=== PATIENT | female | born 1995 | race American Indian/Alaskan Native ===

== ENCOUNTER 2017-10-04 08:04 | Emergency (ER) | payer MEDICAID ==
[2017-10-04 09:48] LABS: Basophils % (Auto) 0.6 % (0.0-1.8); Eosinophils # (Auto) 0.1 K/mm3 (0.0-0.4); Eosinophils % (Auto) 1.9 % (0.0-4.3); Hematocrit 41.5 % (30.3-42.9); Lymphocytes # (Auto) 1.7 K/mm3 (1.2-5.4); Lymphocytes % (Auto) 33.2 % (13.4-35.0); Mean Corpuscular HGB Conc 34 % (30-34); Mean Corpuscular Hemoglobin 30 pg (28-32); Mean Corpuscular Volume 90 fl (79-97); Monocytes # (Auto) 0.4 K/mm3 (0.0-0.8); Monocytes % (Auto) 7.6 % (0.0-7.3); Platelet Count 280 K/mm3 (140-440); Red Cell Distribution Width 13.5 % (13.2-15.2)
[2017-10-04 10:09] LABS: Alanine Aminotransferase 23 units/L (7-56); Albumin 4.3 g/dL (3.9-5); BUN/Creatinine Ratio 20; Blood Urea Nitrogen 12 mg/dL (7-17); Calcium 8.6 mg/dL (8.4-10.2); Hemolysis Index 76
[2017-10-04 10:20] LABS: Bacteria,Urine 1+ /HPF (Negative); Bilirubin,Urine NEG (Negative); Blood,Urine NEG (Negative); Color,Urine Yellow (Yellow); Mucus,Urine FEW /HPF; Protein,Urine <15 mg/dL mg/dL (Negative); Urobilinogen,Urine < 2.0 mg/dL (<2.0)
[2017-10-04 10:21] LABS: HCG Qualitative,Urine Positive (Negative)
--- NOTE | 2017-10-04 11:08 | Emergency Department Report ---
ED Abdominal Pain HPI - General Chief Complaint: Abdominal Pain Stated Complaint: ABD PAIN Time Seen by Provider: 10/04/17 10:56 Source: patient Mode of arrival: Ambulatory Limitations: No Limitations - History of Present Illness Initial Comments: Patient is 21 years old female 2 para 1. Presented to the ER complaining of left lower quadrant pain for one week associated with dysuria. Patient stated that her last menstrual period last month. Patient denied any vaginal bleeding or vaginal discharge. She denied chest pain, shortness of breath or cough or fever. MD Complaint: abdominal pain -: week(s) Location: LLQ Radiation: none Migration to: no migration Severity: moderate Consistency: constant Associated Symptoms: dysuria - Related Data Home Medications Medication Instructions Recorded Confirmed Last Taken Pnv,Calcium 72/Iron/Folic Acid 1 tab PO DAILY 07/01/13 07/27/13 07/26/13 08:00 [Pnv Plus Multivit Tab] Previous Rx's Medication Instructions Recorded Last Taken Type Ferrous Sulfate [Feosol 325 MG tab] 325 mg PO BID #60 tablet 07/29/13 Unknown Rx Ibuprofen [Motrin 600 MG tab] 600 mg PO Q6H PRN #30 tablet 07/29/13 Unknown Rx Vit-Fe Fumar-FA [ 1 each PO QDAY #30 tablet 07/29/13 Unknown Rx Vitamin] Phenazopyridine [Pyridium] 200 mg PO TID #6 tablet 02/23/14 Unknown Rx Acetaminophen/Codeine 1 tab PO Q6H PRN #14 tab 03/20/14 Unknown Rx [Acetaminophen-Codeine #3 TAB] Nitrofurantoin [place]/M-Cryst 100 mg PO Q12HR #10 capsule 09/01/14 Unknown Rx [Macrobid] metroNIDAZOLE [Flagyl] 500 mg PO ONCE #4 tablet 09/01/14 Unknown Rx Nitrofurantoin [place]/M-Cryst 100 mg PO Q12HR #14 capsule 10/04/17 Unknown Rx [Macrobid CAP] Allergies Allergy/AdvReac Type Severity Reaction Status Date / Time No Known Allergies Allergy Verified 07/23/13 10:49 ED Review of Systems ROS: Stated complaint: ABD PAIN Other details as noted in HPI Comment: All other systems reviewed and negative Constitutional: denies: chills, fever Eyes: denies: eye pain Respiratory: denies: cough, orthopnea, shortness of breath, SOB with exertion, SOB at rest, wheezing Cardiovascular: denies: chest pain, palpitations, dyspnea on exertion, orthopnea , edema, syncope, paroxysmal nocturnal dyspnea Gastrointestinal: abdominal pain. denies: nausea, vomiting, diarrhea, constipation, hematemesis, melena Genitourinary: dysuria Musculoskeletal: denies: back pain Neurological: denies: headache, weakness, numbness, paresthesias ED Past Medical Hx - Past Medical History Previous Medical History?: No Hx Hypertension: No Hx Congestive Heart Failure: No Hx Diabetes: No Hx Deep Vein Thrombosis: No Hx Renal Disease: No Hx Sickle Cell Disease: No Hx Seizures: No Hx Asthma: No Hx COPD: No Hx HIV: No - Surgical History Past Surgical History?: No - Social History Smoking Status: Current Every Day Smoker Substance Use Type: None - Medications Home Medications: Home Medications Medication Instructions Recorded Confirmed Last Taken Type Pnv,Calcium 72/Iron/Folic Acid 1 tab PO DAILY 07/01/13 07/27/13 07/26/13 08:00 History [Pnv Plus Multivit Tab] Ferrous Sulfate [Feosol 325 MG tab] 325 mg PO BID #60 tablet 07/29/13 Unknown Rx Ibuprofen [Motrin 600 MG tab] 600 mg PO Q6H PRN #30 tablet 07/29/13 Unknown Rx Vit-Fe Fumar-FA [ 1 each PO QDAY #30 tablet 07/29/13 Unknown Rx Vitamin] Phenazopyridine [Pyridium] 200 mg PO TID #6 tablet 02/23/14 Unknown Rx Acetaminophen/Codeine 1 tab PO Q6H PRN #14 tab 03/20/14 Unknown Rx [Acetaminophen-Codeine #3 TAB] Nitrofurantoin [place]/M-Cryst 100 mg PO Q12HR #10 capsule 09/01/14 Unknown Rx [Macrobid] metroNIDAZOLE [Flagyl] 500 mg PO ONCE #4 tablet 09/01/14 Unknown Rx Nitrofurantoin [place]/M-Cryst 100 mg PO Q12HR #14 capsule 10/04/17 Unknown Rx [Macrobid CAP] ED Physical Exam - General Limitations: No Limitations General appearance: alert, in no apparent distress - Head Head exam: Present: atraumatic, normocephalic, normal inspection - Eye Eye exam: Present: normal appearance - ENT ENT exam: Present: normal exam, normal orophraynx, mucous membranes moist - Neck Neck exam: Present: normal inspection, full ROM. Absent: tenderness, meningismus, lymphadenopathy, thyromegaly - Respiratory Respiratory exam: Present: normal lung sounds bilaterally. Absent: respiratory distress, wheezes, rales, rhonchi, stridor, chest wall tenderness, accessory muscle use, decreased breath sounds, prolonged expiratory - Cardiovascular Cardiovascular Exam: Present: regular rate, normal rhythm, normal heart sounds - GI/Abdominal GI/Abdominal exam: Present: soft, normal bowel sounds. Absent: distended, tenderness, guarding, rebound, rigid, organomegaly, mass, bruit, pulsatile mass , hernia - Extremities Exam Extremities exam: Present: normal inspection, full ROM, normal capillary refill - Back Exam Back exam: Present: normal inspection, full ROM. Absent: tenderness, CVA tenderness (R), CVA tenderness (L), muscle spasm, paraspinal tenderness, vertebral tenderness - Neurological Exam Neurological exam: Present: alert, oriented X3, CN II-XII intact, normal gait, reflexes normal - Skin Skin exam: Present: warm, intact, normal color ED Course Vital Signs 10/04/17 10/04/17 10/04/17 09:06 10:57 14:43 Temperature 99.0 F 99.2 F Pulse Rate 94 H 66 Respiratory 16 18 16 Rate Blood Pressure 112/70 Blood Pressure 114/68 [Left] O2 Sat by Pulse 100 100 100 Oximetry ED Medical Decision Making - Lab Data Result diagrams: 10/04/17 09:21 10/04/17 09:24 - Radiology Data Radiology results: report reviewed Referring Physician: JUDY SALVADOR Patient Name: CINTHIA SALMERON Date of : 1995 Sex: Female Report Date: 2017-10-04 Report Status: Finalized Findings [facility] [address] [place] [address] Ultrasound Report Signed Patient: CINTHIA SALMERON MR#: [id number] : 1995 Acct:[id number] Age/Sex: 21 / F ADM Date: 10/04/17 Loc: ED Attending Dr: Ordering Physician: JUDY SALVADOR Date of Service: 10/04/17 Procedure(s): US OB transvaginal Accession Number(s): [id number] cc: JUDY SALVADOR Ultrasound OB less than 14 weeks fetus Ultrasound OB transvaginal HISTORY: Pelvic pain, cramping. COMPARISON: None. TECHNIQUE: Transabdominal and transvaginal ultrasound with color doppler interrogation. FINDINGS: Uterus: The uterus measures 9 x 6 x 6 cm. No uterine fibroid disease is identified. Normal cervix. Endometrium: An intrauterine gestational sac containing a yolk sac is identified. No convincing pole or heart tones are identified on ultrasound. Gestational sac diameter correlates with a 6 week, one day . A small subchorionic hemorrhage is identified. Right ovary: Within normal limits. Left ovary: A 2.3 cm left ovarian cyst is identified. No pelvic fluid or mass is identified. Normal color doppler interrogation. IMPRESSION: An intrauterine gestational sac containing a small yolk sac is identified. No pole or cardiac activity is identified at this time. This could represent a very early normal or blighted ovum. Close interval followup is recommended. Small subchorionic hemorrhage. 2.3 cm left ovarian cyst. Transcribed By: TTR Dictated By: DANIEL STORM JR, MD Electronically Authenticated By: DANIEL STORM JR, MD Signed Date/Time: 10/04/17 1405 DD/ 1359 TD/TT: 10/04/17 1405 - Medical Decision Making Ultrasound reviewed, I advised patient to follow up with her OB in the next 2-3 days. Patient understood and she said that she will follow up with her OB doctor. Critical care attestation.: If time is entered above; I have spent that time in minutes in the direct care of this critically ill patient, excluding procedure time. ED Disposition Clinical Impression: Abdominal pain affecting , UTI (urinary tract infection) Disposition: DC-01 TO HOME OR SELFCARE Is pt being admited?: No Condition: Stable Instructions: (ED), Urinary Tract Infection in Women (ED), Abdominal Pain (ED) Prescriptions: Nitrofurantoin [place]/M-Cryst [Macrobid CAP] 100 mg PO Q12HR #14 capsule Referrals: RAJINDER LAZO MD [Staff Physician] - 3-5 Days
--- NOTE | 2017-10-04 14:15 | Ultrasound Report ---
Ultrasound OB less than 14 weeks fetus Ultrasound OB transvaginal HISTORY: Pelvic pain, cramping. COMPARISON: None. TECHNIQUE: Transabdominal and transvaginal ultrasound with color doppler interrogation. FINDINGS: Uterus: The uterus measures 9 x 6 x 6 cm. No uterine fibroid disease is identified. Normal cervix. Endometrium: An intrauterine gestational sac containing a yolk sac is identified. No convincing pole or heart tones are identified on ultrasound. Gestational sac diameter correlates with a 6 week, one day . A small subchorionic hemorrhage is identified. Right ovary: Within normal limits. Left ovary: A 2.3 cm left ovarian cyst is identified. No pelvic fluid or mass is identified. Normal color doppler interrogation. IMPRESSION: An intrauterine gestational sac containing a small yolk sac is identified. No pole or cardiac activity is identified at this time. This could represent a very early normal or blighted ovum. Close interval followup is recommended. Small subchorionic hemorrhage. 2.3 cm left ovarian cyst.
[2017-10-04 14:44] VITALS: BP 114/68
== END 2017-10-04 14:49 | disposition home or self-care (01) ==
LOC: ED 08:04
DX: O23.41 Unspecified infection of urinary tract in pregnancy, first trimester (principal); Z3A.14 14 weeks gestation of pregnancy; O99.331 Smoking (tobacco) complicating pregnancy, first trimester
CPT/HCPCS: 36415; 76801; 76817; 80053; 81001; 81025; 84702; 85025; 86900; 86901; 99284

== ENCOUNTER 2018-05-27 11:30 | Inpatient (IN) | payer MEDICAID ==
--- NOTE | 2018-05-27 13:17 | History and Physical Report ---
History of Present Illness Date of examination: 05/27/18 Date of admission: 05/27/2018 Chief complaint: Contractions History of present illness: Past History : 2 Term Births: 1 Premature Births: 0 Living Children: 1 Para: 1 Mult. Births: 0 Prev : 0 Prev. attempt? 0 Aborta: 0 Elect. Ab: 0 Spont. Ab: 0 Ectopics: 0 # 1 Delivery date: 2014 Weeks Gestation: term labor: no Delivery type: Delivery location: [facility] Infant Sex: Male Past Medical History: Negative Past Medical History Past Surgical History: negative Past Medical History Anesthesia Complications: negative Anemia: negative Autoimmune Disorder: negative Bleeding Disorder: negative Blood Transfusions: negative Breast Disease: negative Diabetes: negative Heart Disease: negative Hypertension: negative Hepatitis/Liver Disease: negative Kidney Disease/UTI: negative Neurologic/Epilepsy/Migraines: negative Phlebitis/Varicosities: negative Psychiatric: negative Pulmonary Disease/Asthma: negative Thyroid Disease: negative Hospitalizations: negative 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 Abnormal PAP: negative GARTH Exposure: negative Infertility: negative Uterine Anomaly: negative Uterine Surgery (not C/S): negative Other Gynecologic Problems: negative Family Hx: no known family hx Social Hx: unemployed no ETOH/Drugs/Smoking Infection History Hx of STD: none HIV Risk Eval: no Hepatitis B Risk Eval: low risk Varicella/Chicken Pox Status: Previous Disease Genetic History Congenital Heart Defect: Mom: no Dad: no Kaycee Disease: Mom: no Dad: no Thalassemia Mom: no Dad: no Neural Tube Defect Mom: no Dad: no Down's Syndrome Mom: no Dad: no Alex-Sachs Mom: no Dad: no Sickle Cell Disease/Trait Mom: no Dad: no Hemophilia Mom: no Dad: no Muscular Dystrophy Mom: no Dad: no Cystic Fibrosis Mom: no Dad: no [place] Chorea Mom: no Dad: no Mental Retardation Mom: no Dad: no Fragile X Mom: no Dad: no Other Genetic/Chromosomal Disorder Mom: no Dad: no Child w/other defect Mom: no Dad: no Enviromental Exposures Xray Exposure: no Medication, drug, or alcohol use since LMP: no Chemical/Other Exposure: no Exposure to Cat Liter: no Hx of Parvovirus (Fifth Disease): no Occupational Exposure to Children: none Active Medications (reviewed today): None Current Allergies (reviewed today): No known allergies Past History Past Medical History: other (see hpi) Past Surgical History: other (see hpi) PICU NURSE History: other (see hpi) Family/Genetic History: other (see hpi) Social history: other (see hpi) - Obstetrical History : 2 Medications and Allergies Allergies Allergy/AdvReac Type Severity Reaction Status Date / Time No Known Allergies Allergy Verified 07/23/13 10:49 Home Medications Medication Instructions Recorded Confirmed Last Taken Type Vit-Fe Fumar-FA [ 1 each PO QDAY #30 tablet 07/29/13 05/27/18 05/26/18 Rx Vitamin] Review of Systems All systems: negative - Vital Signs Vital signs: Vital Signs Pulse BP 116 H 126/71 05/27/18 11:45 05/27/18 11:45 Temp Pulse Resp BP Pulse Ox 98.2 F 116 H 16 126/71 05/27/18 12:05 05/27/18 11:45 05/27/18 12:05 05/27/18 11:45 - Physical Exam Breasts: Positive: normal Cardiovascular: Regular rate, Normal S1, Normal S2 Lungs: Positive: Clear to auscultation Abdomen: Positive: normal appearance, soft, normal bowel sounds. Negative: distention, tenderness Genitourinary (Female): Positive: normal external genitalia, normal perenium Vulva: both: normal Vagina: Positive: normal moisture. Negative: discharge Cervix: Negative: lesion, discharge Uterus: Positive: normal size, normal contour Adnexa: both: normal Anus/Rectum: Positive: normal perianal skin, heme negative. Negative: rectal mass, hemorrhoids Extremities: Positive: normal Deep Tendon Reflex Grade: Normal +2 - Obstetrical FHR: auscultation normal Uterine Contraction Monitor Mode: External Cervical Dilatation: 6 Cervical Effacement Percentage: 80 station: -2 Uterine Contraction Frequency (min): 2-5 Uterine Contraction Duration: 70-90 Uterine Contraction Pattern: Regular Uterine Tone Measurement Phase: Contraction Uterine Contraction Intensity: Moderate (soft resting tone) Results All other labs normal. Assessment and Plan 22y.o. IUP at 38w5d presents to triage with c/o contractions every 2-4 minutes. SVE on arrival 4.5/80/-2. Recheck 45 minutes later 6/80/-2. Ctx q2-5 minutes, moderate. Cateogry 1 tracing. GBS +. Routine admission orders placed, abx for GBS initiated. Patient desires epidural, bolus started in preparation. Dr. Prince notified of patient assessment and admission, agrees with current POC. Anticipate vaginal delivery.
[2018-05-27] MEDS ORDERED: BRETHINE SUB-Q PRN (13:20)
[2018-05-27] MEDS ORDERED: XYLOCAINE 2% INFILTRATI ONE (13:20)
[2018-05-27] MEDS ORDERED: ZOFRAN IV PRN ×2 (13:20→22:27)
[2018-05-27] MEDS ORDERED: NARCAN 0.4 MG/1 ML IV PRN (13:20)
[2018-05-27] MEDS ORDERED: BRETHINE IVP PRN (13:20)
[2018-05-27] MEDS ORDERED: MINERAL OIL PO PRN (13:20)
[2018-05-27] MEDS ORDERED: METHERGINE IM PRN (13:27)
[2018-05-27] MEDS ORDERED: HEMABATE IM PRN (13:27)
[2018-05-27] MEDS ORDERED: CYTOTEC PR PRN (13:27)
[2018-05-27 13:54] LABS: Hematocrit 32.3 % (30.3-42.9); Hemoglobin 10.8 gm/dl (10.1-14.3); Mean Corpuscular HGB Conc 33 % (30-34); Mean Corpuscular Volume 89 fl (79-97); Platelet Count 276 K/mm3 (140-440); Red Blood Count 3.65 M/mm3 (3.65-5.03); Red Cell Distribution Width 13.5 % (13.2-15.2)
[2018-05-27] MEDS ORDERED: AMPICILLIN/NS 2 GM/100 ML 2 GM/100 ML BAG IV ONE (13:59)
[2018-05-27] MEDS ORDERED: LACTATED RINGERS 1,000 ML IV SCH (14:00)
[2018-05-27] MEDS ORDERED: PITOCin/NS 20 UNIT/1000ML DRIP 20 UNITS/1,000 ML BAG IV SCH ×2 (14:00→22:27)
[2018-05-27] MEDS ORDERED: SUBLIMAZE IV PRN (14:03)
[2018-05-27] MEDS ORDERED: NARCAN 2 MG/2 ML IV PRN (15:52)
--- NOTE | 2018-05-27 15:52 | Anesthesia Consultation ---
Anesthesia Consult and Med Hx Date of service: 05/27/18 - Airway Anesthetic Teeth Evaluation: Good ROM Head & Neck: Adequate Mental/Hyoid Distance: Adequate Mallampati Class: Class II Intubation Access Assessment: Probably Good - Pre-Operative Health Status ASA Pre-Surgery Classification: ASA2 Proposed Anesthetic Plan: Epidural, Spinal - Pulmonary Hx Asthma: No COPD: No Hx Pneumonia: No - Cardiovascular System Hx Hypertension: No - Central Nervous System Hx Seizures: No Hx Psychiatric Problems: No - Endocrine Hx Renal Disease: No Hx End Stage Renal Disease: No Hx Hypothyroidism: No Hx Hyperthyroidism: No - Hematic Hx Anemia: No Hx Sickle Cell Disease: No - Other Systems Hx Alcohol Use: Yes (x1)
[2018-05-27] MEDS ORDERED: fentaNYL-BUPIV 2 MCG/ML-0.125% 200 MCG/100 ML BAG EPIDURAL SCH (16:00)
--- NOTE | 2018-05-27 16:15 | Event Note ---
Date: 05/27/18 Patient resting comfortably s/p epidural placement. Denies any complaints. AROM performed, light meconium noted. SVE 6.5/80/-1. Will continue to monitor. Anticipate vaginal delivery.
[2018-05-27] MEDS ORDERED: PITOCin/NS 30 UNIT/500ML 30 UNITS/500 ML BAG IV SCH (17:00)
[2018-05-27] MEDS ORDERED: AMPICILLIN/NS 1 GM/50 ML 1 GM/50 ML BAG IV SCH (17:24)
--- NOTE | 2018-05-27 17:33 | Event Note ---
Date: 05/27/18 Late decerations noted- O2, LR bolus, left lateral. SVE unchanged, Dr. Prince notified-internals placed per order from .
--- NOTE | 2018-05-27 19:53 | Procedure Note ---
OB Delivery Note - Delivery Date of Delivery: 05/27/18 Field Service Coordinator: CHRISTINA FLORES (Dr. Prince present for delivery) Estimated blood loss: 200cc - Vaginal Delivery position: OA Intrapartum events: meconium Delivery induction: none Delivery augmentation: rupture of membranes, pitocin Delivery monitor: external FHT, external uterine, internal FHT, internal uterine Route of delivery: Delivery placenta: spontaneous Episiotomy: none Delivery laceration: none Anesthesia: epidural Delivery comments: of viable female infant over intact perineum. placed on mothers abdomen and tactile stimulation produces vigorous cry. Cord clamped x2 and cut by patients mother. Cord blood collected. Placenta delivered spontaneously, complete and intact. Pitocin to IV. Fundus firm and hemostasis achieved. No laceration to repair. Awaiting NICU team assigned Apgars of 8/9. Infant weight 7#12. Mother and infant remain in LDR in stable condition. - A at 1 minute: 8 at 5 minutes: 9 Infant Gender: Female (7#12)
[2018-05-27] MEDS ORDERED: PHENERGAN PO PRN (22:27)
[2018-05-27] MEDS ORDERED: TYLENOL PO PRN (22:27)
[2018-05-27] MEDS ORDERED: BENADRYL PO PRN (22:27)
[2018-05-27] MEDS ORDERED: SODIUM CHLORIDE FLUSH SYRINGE 10 ML IV NR (22:27)
[2018-05-27] MEDS ORDERED: LANSINOH TP PRN (22:27)
[2018-05-27] MEDS ORDERED: MILK OF MAGNESIA PO PRN (22:27)
[2018-05-27] MEDS ORDERED: DULCOLAX PR PRN (22:27)
[2018-05-27] MEDS ORDERED: TUCKS PAD TP PRN (22:27)
[2018-05-27] MEDS: COLACE PO SCH (22:54)
[2018-05-27] MEDS: IBUPROFEN PO SCH (22:54)
[2018-05-28] MEDS: IBUPROFEN PO SCH ×4 (05:55→22:30)
--- NOTE | 2018-05-28 06:17 | Progress Note ---
Assessment and Plan - Patient Problems (1) Status post normal vaginal delivery Onset Date: ~05/27/18 Current Visit: No Status: Acute Plan to address problem: pt sleeping No c/o voiced VSS FF below umb Lochia small Perineum intact H&H pending Pt is w/o s/sx of anemia Doing well s/p vag delivery P: continue pathway Advance as tolerated. D/C tomorrow if stable. Subjective - Subjective Date of service: 05/28/18 (sleeping; d/c tomorrow) Principal diagnosis: Day # 1 s/p vaginal delivery Patient reports: appetite normal, voiding normally, pain well controlled, ambulating normally : doing well Objective - Vital Signs Latest vital signs: Vital Signs Temp Pulse Resp BP BP Pulse Ox 05/28/18 05:31 98.1 F 89 18 98/51 100 05/28/18 00:40 98.3 F 98 H 18 100/55 100 05/27/18 21:25 99.0 F 84 111/73 100 05/27/18 20:21 155 H 184/70 05/27/18 20:06 94 H 110/66 05/27/18 19:53 85 108/55 05/27/18 19:52 85 182/66 05/27/18 19:48 61 81 L 05/27/18 19:47 78 L 05/27/18 19:38 98 H 100 05/27/18 19:36 100 H 124/58 05/27/18 19:35 97.1 F L 05/27/18 19:33 99 H 100 05/27/18 19:06 89 106/66 100 05/27/18 19:02 97.7 F 05/27/18 19:01 89 100 05/27/18 18:56 88 100 05/27/18 18:51 88 108/65 100 05/27/18 18:46 86 100 05/27/18 18:41 86 100 05/27/18 18:37 84 108/53 05/27/18 18:36 81 100 05/27/18 18:31 75 96 05/27/18 18:26 73 100 05/27/18 18:23 81 102/59 05/27/18 18:22 94 H 88 05/27/18 18:21 88 94 05/27/18 18:16 88 87 05/27/18 18:11 75 99 05/27/18 18:06 78 115/65 94 05/27/18 18:03 85 87 05/27/18 18:01 79 100 05/27/18 17:56 79 100 05/27/18 17:55 98.3 F 18 05/27/18 17:51 80 110/60 100 05/27/18 17:46 84 100 05/27/18 17:45 43 L 80 L 05/27/18 17:41 73 100 05/27/18 17:36 78 104/55 100 05/27/18 17:31 84 100 05/27/18 17:26 72 100 05/27/18 17:21 77 103/56 100 05/27/18 17:16 75 100 05/27/18 17:11 72 100 05/27/18 17:06 70 100 05/27/18 17:01 79 100 05/27/18 16:56 84 100 05/27/18 16:51 85 106/61 100 05/27/18 16:46 90 100 05/27/18 16:41 86 100 05/27/18 16:38 95 H 111/60 05/27/18 16:36 82 100 05/27/18 16:31 95 H 100 05/27/18 16:29 97.9 F 18 05/27/18 16:26 96 H 100 05/27/18 16:21 95 H 105/69 100 05/27/18 16:16 96 H 100 05/27/18 16:11 103 H 100 05/27/18 16:06 100 H 97/65 100 05/27/18 16:01 102 H 100 05/27/18 15:56 97 H 100 05/27/18 15:51 103 H 100 05/27/18 15:50 106 H 112/72 05/27/18 15:48 96 H 115/69 05/27/18 15:46 110 H 118/71 100 05/27/18 15:44 99 H 118/68 05/27/18 15:43 103 H 109/70 05/27/18 15:42 105 H 93 05/27/18 15:41 100 H 100 05/27/18 15:40 94 H 104/63 05/27/18 15:38 99 H 107/65 05/27/18 15:36 101 H 110/75 100 05/27/18 15:34 99 H 106/66 05/27/18 15:33 102 H 119/86 05/27/18 15:31 98 H 100 05/27/18 15:30 116 H 124/73 05/27/18 15:26 112 H 100 05/27/18 15:19 105 H 119/82 05/27/18 14:35 98.3 F 18 05/27/18 14:21 115 H 114/77 05/27/18 12:05 98.2 F 16 05/27/18 11:45 116 H 126/71 Intake and Output 05/27/18 05/27/18 05/28/18 14:59 22:59 06:59 Intake Total 360 Output Total 600 1400 Balance -600 -1040 Intake: Oral 360 Output: Urine 600 1400 Indwelling Catheter 600 Void 1400 Other: Total, Intake Amount 360 Total, Output Amount 600 800 # Voids Void 1 Weight 167 lb Estimated Blood Loss 200 Patient Weight 05/28/18 06:59 Weight 167 lb - Exam Breasts: Present: normal Cardiovascular: Present: Regular rate Lungs: Present: Normal air movement Abdomen: Present: normal appearance, soft Uterus: Present: normal Extremities: Present: normal Deep Tendon Reflex Grade: Normal +2 Incision: Present: normal, dry, intact
[2018-05-28 07:54] LABS: Hematocrit 28.9 % (30.3-42.9); Hemoglobin 9.9 gm/dl (10.1-14.3)
[2018-05-28] MEDS ORDERED: PRENATAL VITAMIN PO SCH (10:00)
[2018-05-28] MEDS: COLACE PO SCH ×2 (10:28→22:38)
[2018-05-28] MEDS ORDERED: BOOSTRIX IM ONE (19:46)
[2018-05-29] MEDS: IBUPROFEN PO SCH (05:14)
[2018-05-29 08:23] VITALS: BP 93/59
--- NOTE | 2018-05-29 08:28 | Discharge Summary ---
Providers - Providers Date of Admission: 05/27/18 14:39 Date of discharge: 05/29/18 (lori desires discharge today) Attending physician: APOLINAR ISIDRO Primary care physician: RAJINDER LAZO Hospitalization Reason for admission: labor at term Condition: Good Pertinent studies: post delivery H&H 9.9/28.9, asymptomatic Procedures: Hospital course: uncomplicated labor & delivery and course Disposition: DC-01 TO HOME OR SELFCARE Core Measure Documentation - Palliative Care Palliative Care/ Comfort Measures: Not Applicable - Core Measures Any of the following diagnoses?: none Exam - Constitutional Vitals: Temp Pulse Resp BP Pulse Ox 98.6 F 83 20 93/59 100 05/29/18 07:41 05/29/18 07:41 05/29/18 07:41 05/29/18 07:41 05/29/18 07:41 General appearance: Present: no acute distress, well-nourished - EENT Eyes: Present: PERRL ENT: hearing intact, clear oral mucosa - Neck Neck: Present: supple, normal ROM - Respiratory Respiratory effort: normal Respiratory: bilateral: CTA - Cardiovascular Rhythm: regular Heart Sounds: Present: S1 & S2. Absent: rub, click - Extremities Extremities: pulses symmetrical, No edema Peripheral Pulses: within normal limits - Abdominal General gastrointestinal: Present: soft, non-tender, non-distended, normal bowel sounds Female genitourinary: Present: normal - Integumentary Integumentary: Present: clear, warm, dry - Musculoskeletal Musculoskeletal: gait normal, strength equal bilaterally - Psychiatric Psychiatric: appropriate mood/affect, intact judgment & insight - Neurologic Neurologic: CNII-XII intact, moves all extremities - Additional findings Additional findings: fundus firm, ML, U/2. Scant bleeding. Pain is well controlled with medications. Bottle feeding only, breasts are feeling well. VSSAF Plan Activity: no restrictions Diet: regular Follow up with: RAJINDER LAZO MD [Primary Care Provider] - 6 Weeks (Congratulations! Please call [phone] today to schedule your appointment for 6 weeks. Call with any questions or concerns. )
== END 2018-05-29 09:57 | disposition home or self-care (01) | DRG 775 ==
LOC: TRG 11:30 → LD 14:39 → OB 21:25
PROVIDERS: ADMIT Obstetrics & Gynecology; ATTEND Obstetrics & Gynecology
PROC: 10E0XZZ Delivery of Products of Conception, External Approach (ICD-10-PCS; principal; 2018-05-27)
PROC: 3E0R3BZ Introduction of Anesthetic Agent into Spinal Canal, Percutaneous Approach (ICD-10-PCS; 2018-05-27)
PROC: 00HU33Z Insertion of Infusion Device into Spinal Canal, Percutaneous Approach (ICD-10-PCS; 2018-05-27)
PROC: 10907ZC Drainage of Amniotic Fluid, Therapeutic from Products of Conception, Via Natural or Artificial Opening (ICD-10-PCS; 2018-05-27)
DX: O77.0 Labor and delivery complicated by meconium in amniotic fluid (principal); O99.824 Streptococcus B carrier state complicating childbirth; Z3A.38 38 weeks gestation of pregnancy; Z37.0 Single live birth
CPT/HCPCS: 36415; 85014; 85018; 85027; 86592; 86850; 86900; 86901; G0378; J0290; J2590; J7120

== ENCOUNTER 2018-12-30 09:58 | Emergency (ER) | payer SELFPAY ==
--- NOTE | 2018-12-30 10:49 | Emergency Department Report ---
- General Chief Complaint: Wound/Laceration Stated Complaint: SPIDER BITE Time Seen by Provider: 12/30/18 10:29 Source: patient Mode of arrival: Ambulatory Limitations: No Limitations - History of Present Illness Initial Comments: Patient is a 23-year-old female that presents emergency room for an insect bite on her right ankle. Patient complains of mild pain at times. Patient states she's not having any pain right now. Patient states that she is having a clear discharge and redness to the site. Patient denies fever chills. Patient denies inability to walk. Patient denies swelling. Patient denies abdominal pain. Patient denies dizziness. -: Sudden Extremity Location: Right: Ankle Place: home Patient Tetanus UTD: Yes Context: other Associated Symptoms: pain Treatments Prior to Arrival: NSAIDS - Related Data Previous Rx's Medication Instructions Recorded Last Taken Type Vit-Fe Fumar-FA [ 1 each PO QDAY #30 tablet 07/29/13 05/26/18 Rx Vitamin] Docusate Sodium [Colace] 100 mg PO BID PRN #60 capsule 05/29/18 Unknown Rx Ferrous Sulfate [Feosol 325 MG tab] 325 mg PO BID #60 tablet 05/29/18 Unknown Rx Ibuprofen [Motrin] 600 mg PO Q8H PRN #30 tablet 05/29/18 Unknown Rx Doxycycline Hyclate [Doxycycline 100 mg PO Q12HR 10 Days #20 tab 12/30/18 Unknown Rx Hyclate TAB] Allergies Allergy/AdvReac Type Severity Reaction Status Date / Time No Known Allergies Allergy Verified 07/23/13 10:49 ED Review of Systems ROS: Stated complaint: SPIDER BITE Other details as noted in HPI Comment: All other systems reviewed and negative ED Past Medical Hx - Past Medical History Previous Medical History?: No Hx Hypertension: No Hx Congestive Heart Failure: No Hx Diabetes: No Hx Deep Vein Thrombosis: No Hx Renal Disease: No Hx Sickle Cell Disease: No Hx Seizures: No Hx Asthma: No Hx COPD: No Hx HIV: No - Surgical History Past Surgical History?: No - Family History Family history: no significant - Social History Smoking Status: Current Every Day Smoker Substance Use Type: Alcohol - Medications Home Medications: Home Medications Medication Instructions Recorded Confirmed Last Taken Type Vit-Fe Fumar-FA [ 1 each PO QDAY #30 tablet 07/29/13 05/27/18 05/26/18 Rx Vitamin] Docusate Sodium [Colace] 100 mg PO BID PRN #60 capsule 05/29/18 Unknown Rx Ferrous Sulfate [Feosol 325 MG tab] 325 mg PO BID #60 tablet 05/29/18 Unknown Rx Ibuprofen [Motrin] 600 mg PO Q8H PRN #30 tablet 05/29/18 Unknown Rx Doxycycline Hyclate [Doxycycline 100 mg PO Q12HR 10 Days #20 tab 12/30/18 Unknown Rx Hyclate TAB] ED Physical Exam - General Limitations: No Limitations General appearance: alert, in no apparent distress - Head Head exam: Present: atraumatic, normocephalic - Eye Eye exam: Present: normal appearance - ENT ENT exam: Present: mucous membranes moist - Neck Neck exam: Present: normal inspection - Respiratory Respiratory exam: Present: normal lung sounds bilaterally. Absent: respiratory distress, wheezes, rales - Cardiovascular Cardiovascular Exam: Present: regular rate, normal rhythm. Absent: systolic murmur, diastolic murmur, rubs, gallop - GI/Abdominal GI/Abdominal exam: Present: soft, normal bowel sounds - Rectal Rectal exam: Present: deferred - Extremities Exam Extremities exam: Present: normal inspection (except for insect bite on right ankle) - Back Exam Back exam: Present: normal inspection - Neurological Exam Neurological exam: Present: alert, oriented X3 - Psychiatric Psychiatric exam: Present: normal affect, normal mood - Skin Skin exam: Present: warm, dry, normal color, erythema (around insect bite on right ankle), other ("wound noted to the right ankle with redness around the edges). Absent: rash ED Course Vital Signs 12/30/18 12/30/18 10:09 11:29 Temperature 98.2 F Pulse Rate 80 76 Respiratory 16 16 Rate Blood Pressure 118/85 120/81 [Left] O2 Sat by Pulse 100 100 Oximetry - Reevaluation(s) Reevaluation #1: I discussed plan of care with patient. Patient agrees to plan of care. Patient will be discharged home with antibiotics. Patient is stable for discharge. Patient given discharge instructions. Patient voiced understanding of discharge instructions 12/30/18 10:49 ED Medical Decision Making - Medical Decision Making pt is a 23-year-old female that presents emergency room with complaints of insect bite to the right ankle. Patient found to have cellulitis. Patient given antibiotics. Patient's tetanus is up-to-date. Patient patient given doxycycline. Patient is stable for discharge. Patient discharged home. Patient does not have a emergency medical condition at this time. - Differential Diagnosis neck bite. Cellulitis. Critical care attestation.: If time is entered above; I have spent that time in minutes in the direct care of this critically ill patient, excluding procedure time. ED Disposition Clinical Impression: Insect bite Qualifiers: Encounter type: initial encounter Site of insect bite: lower leg Laterality: right Qualified Code(s): S80.861A - Insect bite (nonvenomous), right lower leg, initial encounter Cellulitis Qualifiers: Site of cellulitis: extremity Site of cellulitis of extremity: lower extremity Laterality: right Qualified Code(s): L03.115 - Cellulitis of right lower limb Disposition: TO HOME OR SELFCARE Is pt being admited?: No Does the pt Need Aspirin: No Condition: Stable Instructions: Cellulitis (ED), Insect Bite or Sting (ED) Additional Instructions: Patient to follow up with primary care in 2-3 days. Patient to return to ER if condition worsens. Patient to take Tylenol or ibuprofen when necessary for pain. Patient take meds as directed. Patient increase water. Patient elevate limb. Patient to keep site clean and dry. Prescriptions: Doxycycline Hyclate [Doxycycline Hyclate TAB] 100 mg PO Q12HR 10 Days #20 tab Referrals: HIEN MIRANDA MD [Primary Care Provider] - 3-5 Days Time of Disposition: 10:52
[2018-12-30 11:30] VITALS: BP 120/81
== END 2018-12-30 11:29 | disposition home or self-care (01) ==
LOC: ED 09:58
DX: S90.561A Insect bite (nonvenomous), right ankle, initial encounter (principal); L03.115 Cellulitis of right lower limb; F17.200 Nicotine dependence, unspecified, uncomplicated; W57.XXXA Bitten or stung by nonvenomous insect and other nonvenomous arthropods, initial encounter; Y93.89 Activity, other specified; Y92.89 Other specified places as the place of occurrence of the external cause; Y99.8 Other external cause status

== ENCOUNTER 2019-01-03 13:17 | Emergency (ER) | payer SELFPAY ==
[2019-01-03 13:25] VITALS: BP 100/68
--- NOTE | 2019-01-03 13:31 | Emergency Department Report ---
Chief Complaint: Skin/Abscess/Foreign Body Stated Complaint: SPIDER BITE Time Seen by Provider: 01/03/19 13:31 - HPI History of Present Illness: Patient is a 23-year-old female that returns to the Ed emergency room for an insect bite on her right ankle. Patient complains of mild pain at times. Patient states she's not having any pain right now. Patient states that she is having a clear discharge and redness to the site. Patient denies fever chills. Patient denies inability to walk. Patient denies swelling. Patient denies abdominal pain. Patient denies dizziness. -: Sudden Extremity Location: Right: Ankle Place: home Patient Tetanus UTD: Yes - ROS Review of Systems: As noted in HPI - Exam Vital Signs: Vital Signs 01/03/19 13:24 Temperature 98.5 F Pulse Rate 98 H Respiratory 16 Rate Blood Pressure 100/68 O2 Sat by Pulse 100 Oximetry MSE screening note: Focused history and physical exam performed. Due to findings the following was ordered: ED Disposition for MSE Clinical Impression: Cellulitis of leg, right, Nonvenomous spider bite Disposition: DC-01 TO HOME OR SELFCARE Is pt being admited?: No Does the pt Need Aspirin: No Condition: Stable Instructions: Insect Bite or Sting (ED) Additional Instructions: Follow instructions as discussed Prescriptions: Sulfamethoxazole/Trimethoprim [Bactrim DS TAB] 1 each PO BID #10 tablet Ibuprofen [Motrin 600 MG tab] 600 mg PO Q8H PRN #30 tablet PRN Reason: Pain Referrals: [facility] [Outside] - 3-5 Days Forms: Work/School Release Form(ED) Time of Disposition: 14:05
== END 2019-01-03 14:26 | disposition home or self-care (01) ==
LOC: ED 13:17
DX: S80.861A Insect bite (nonvenomous), right lower leg, initial encounter (principal); L03.115 Cellulitis of right lower limb; W57.XXXA Bitten or stung by nonvenomous insect and other nonvenomous arthropods, initial encounter; Y92.89 Other specified places as the place of occurrence of the external cause; Y93.89 Activity, other specified; Y99.8 Other external cause status
CPT/HCPCS: 99282

== ENCOUNTER 2019-03-25 08:11 | Emergency (ER) | payer SELFPAY ==
[2019-03-25 08:14] VITALS: BP 118/60
[2019-03-25 08:41] LABS: Basophils % (Auto) 0.8 % (0.0-1.8); Eosinophils # (Auto) 0.1 K/mm3 (0.0-0.4); Eosinophils % (Auto) 1.7 % (0.0-4.3); Hematocrit 39.3 % (30.3-42.9); Hemoglobin 13.3 gm/dl (10.1-14.3); Lymphocytes % (Auto) 40.8 % (13.4-35.0); Mean Corpuscular HGB Conc 34 % (30-34); Mean Corpuscular Volume 91 fl (79-97); Monocytes # (Auto) 0.4 K/mm3 (0.0-0.8); Platelet Count 266 K/mm3 (140-440); Red Blood Count 4.33 M/mm3 (3.65-5.03); Red Cell Distribution Width 14.2 % (13.2-15.2)
[2019-03-25 09:01] LABS: Alanine Aminotransferase 30 units/L (7-56); Albumin 4.4 g/dL (3.9-5); BUN/Creatinine Ratio 21; Blood Urea Nitrogen 15 mg/dL (7-17); Calcium 9.2 mg/dL (8.4-10.2); Hemolysis Index 6
--- NOTE | 2019-03-25 09:03 | Emergency Department Report ---
HPI - General Chief Complaint: Abdominal Pain Time Seen by Provider: 03/25/19 08:51 - HPI HPI: 23-year-old female presents to the emergency department with a complaint of "I think I have a bad yeast infection." Patient says that she's been having a one-week history of some pelvic discomfort and thick white discharge with some burning sensation around the vagina. She has a history of previous yeast infections. She says that the pain goes away temporarily when she takes some ibuprofen. She denies any fever, nausea, vomiting, back pain, dysuria. She does not have a primary care physician or [employer]. No recent travel or sick contacts at home. ED Past Medical Hx - Past Medical History Hx Hypertension: No Hx Congestive Heart Failure: No Hx Diabetes: No Hx Deep Vein Thrombosis: No Hx Renal Disease: No Hx Sickle Cell Disease: No Hx Seizures: No Hx Asthma: No Hx COPD: No Hx HIV: No - Social History Smoking Status: Current Every Day Smoker - Medications Home Medications: Home Medications Medication Instructions Recorded Confirmed Last Taken Type Vit-Fe Fumar-FA [ 1 each PO QDAY #30 tablet 07/29/13 05/27/18 05/26/18 Rx Vitamin] Docusate Sodium [Colace] 100 mg PO BID PRN #60 capsule 05/29/18 Unknown Rx Ferrous Sulfate [Feosol 325 MG tab] 325 mg PO BID #60 tablet 05/29/18 Unknown Rx Doxycycline Hyclate [Doxycycline 100 mg PO Q12HR 10 Days #20 tab 12/30/18 Unknown Rx Hyclate TAB] Ibuprofen [Motrin 600 MG tab] 600 mg PO Q8H PRN #30 tablet 01/03/19 Unknown Rx Sulfamethoxazole/Trimethoprim 1 each PO BID #10 tablet 01/03/19 Unknown Rx [Bactrim DS TAB] Fluconazole [Diflucan TAB] 150 mg PO ONCE #1 tablet 03/25/19 Unknown Rx ED Review of Systems ROS: Stated complaint: ABD PAIN Other details as noted in HPI Comment: All other systems reviewed and negative Constitutional: denies: chills, fever Gastrointestinal: denies: nausea, vomiting Genitourinary: discharge. denies: dysuria Musculoskeletal: denies: back pain Skin: denies: rash, lesions Physical Exam - Physical Exam Vital Signs: Vital Signs 03/25/19 08:13 Temperature 99.2 F Pulse Rate 68 Respiratory 16 Rate Blood Pressure 118/60 O2 Sat by Pulse 99 Oximetry Physical Exam: GENERAL: The patient is well-developed well-nourished. HENT: Normocephalic. Atraumatic. Patient has moist mucous membranes. EYES: Extraocular motions are intact. NECK: Supple. Trachea is midline. CHEST/LUNGS: Clear to auscultation. There is no respiratory distress noted. HEART/CARDIOVASCULAR: Regular. There is no tachycardia. There is no murmur. ABDOMEN: Abdomen is soft, nontender. Patient has normal bowel sounds. There is no abdominal distention. SKIN: Skin is warm and dry. NEURO: The patient is awake, alert, and oriented. The patient is cooperative. The patient has no focal neurologic deficits. Normal speech. MUSCULOSKELETAL: There is no tenderness or deformity. There is no evidence of acute injury. PELVIC: There is some mild thin white discharge seen in the vagina. ED Course Vital Signs 03/25/19 08:13 Temperature 99.2 F Pulse Rate 68 Respiratory 16 Rate Blood Pressure 118/60 O2 Sat by Pulse 99 Oximetry - Reevaluation(s) Reevaluation #1: 03/25/19 16:08 The pelvic examination was done with nurse Vega at bedside to assist and as a central lab technician. ED Medical Decision Making - Lab Data Result diagrams: 03/25/19 08:18 03/25/19 08:18 - Medical Decision Making Patient presents with some mild lower abdominal and pelvic discomfort as well as some vaginal discharge. A pelvic examination was done that showed some thin white discharge within the vagina but no skin lesions or rash. Wet prep was negative for BV and Trich. It also says that there was no yeast but the patient says it feels very much like her previous yeast infections. She'll be treated with Diflucan pill. She has been given referrals for primary care and [employer]. Vital signs stable throughout her ED course. The rest of her labs are unremarkable as well including CBC, metabolic panel and urinalysis. The patient is not . - Differential Diagnosis UTI, , ovarian cyst, vaginal candidiasis Critical Care Time: No Critical care attestation.: If time is entered above; I have spent that time in minutes in the direct care of this critically ill patient, excluding procedure time. ED Disposition Clinical Impression: Vulvovaginal candidiasis Disposition: DC- TO HOME OR SELFCARE Is pt being admited?: No Condition: Stable Instructions: Vulvovaginal Candidiasis (ED), Vaginitis (ED), Abdominal Pain (ED) Additional Instructions: Please follow-up with a primary care physician in the next few days. I am also giving you a referral for some local [employer] services. Return to the emergency Department with any worsening of your symptoms or any acute distress. Prescriptions: Fluconazole [Diflucan TAB] 150 mg PO ONCE #1 tablet Referrals: HIEN MIRANDA MD [Primary Care Provider] - 2-3 Days [facility] [Provider Group] - 2-3 Days [facility] [Provider Group] - 2-3 Days Time of Disposition: 10:02
[2019-03-25 09:28] LABS: Bilirubin,Urine NEG (Negative); Blood,Urine NEG (Negative); Color,Urine Yellow (Yellow); Mucus,Urine FEW /HPF; Protein,Urine <15 mg/dL mg/dL (Negative); Urobilinogen,Urine < 2.0 mg/dL (<2.0)
== END 2019-03-25 10:14 | disposition home or self-care (01) ==
LOC: ED 08:11
DX: B37.3 Candidiasis of vulva and vagina (principal); F17.200 Nicotine dependence, unspecified, uncomplicated; Z79.1 Long term (current) use of non-steroidal anti-inflammatories (NSAID); Z79.899 Other long term (current) drug therapy
CPT/HCPCS: 36415; 80053; 81001; 84703; 85025; 87210; 87591

== ENCOUNTER 2019-12-19 08:33 | Emergency (ER) | payer SELFPAY ==
[2019-12-19 08:43] VITALS: BP 106/56
[2019-12-19 09:04] LABS: Basophils % (Auto) 0.8 % (0.0-1.8); Eosinophils # (Auto) 0.1 K/mm3 (0.0-0.4); Eosinophils % (Auto) 2.6 % (0.0-4.3); Hemoglobin 14.2 gm/dl (10.1-14.3); Lymphocytes # (Auto) 1.9 K/mm3 (1.2-5.4); Lymphocytes % (Auto) 44.7 % (13.4-35.0); Mean Corpuscular HGB Conc 34 % (30-34); Mean Corpuscular Volume 90 fl (79-97); Monocytes # (Auto) 0.2 K/mm3 (0.0-0.8); Monocytes % (Auto) 5.7 % (0.0-7.3); Platelet Count 264 K/mm3 (140-440); Red Blood Count 4.67 M/mm3 (3.65-5.03)
[2019-12-19 09:08] LABS: Bacteria,Urine 1+ /HPF (Negative); Bilirubin,Urine NEG (Negative); Blood,Urine NEG (Negative); Color,Urine Yellow (Yellow); Mucus,Urine FEW /HPF; Protein,Urine <15 mg/dL mg/dL (Negative); Urobilinogen,Urine < 2.0 mg/dL (<2.0)
[2019-12-19 09:09] LABS: HCG Qualitative,Urine Negative (Negative)
--- NOTE | 2019-12-19 09:37 | Emergency Department Report ---
ED Female HPI - General Chief complaint: Abdominal Pain Stated complaint: ABD PAIN Time Seen by Provider: 12/19/19 09:04 Source: patient Mode of arrival: Ambulatory Limitations: No Limitations - History of Present Illness Initial comments: This is a 23-year-old female nontoxic, well nourished in appearance, no acute signs of distress presents to the ED with c/o of pelvic pain, dysuria, and vaginal discharge. Patient denies any nausea or vomiting. Patient describes pelvic pain as cramping and aching with level of 3/10 diffuse. Patient denies c hest pain, short of breath, fever, hemoptysis, blood in stool, chills, headache, stiff neck, numbness or tingling. Patient denies any diarrhea or constipation. Denies any blood in stool. Patient denies any recent travels. MD Complaint: vaginal discharge, dysuria, pelvic pain, possible STD -: days(s) Radiation: non-radiating Severity: mild Severity scale (0 -10): 3 Quality: cramping, aching Consistency: constant Improves with: none Worsens with: none Are you Now?: No Associated Symptoms: vaginal discharge, dysuria. denies: vaginal bleeding, abdominal pain, nausea/vomiting, fever/chills, headaches, loss of appetite, hematuria, rash, seizure, shortness of breath, syncope, weakness - Related Data Previous Rx's Medication Instructions Recorded Last Taken Type Vit-Fe Fumar-FA [ 1 each PO QDAY #30 tablet 07/29/13 05/26/18 Rx Vitamin] Docusate Sodium [Colace] 100 mg PO BID PRN #60 capsule 05/29/18 Unknown Rx Ferrous Sulfate [Feosol 325 MG tab] 325 mg PO BID #60 tablet 05/29/18 Unknown Rx Doxycycline Hyclate [Doxycycline 100 mg PO Q12HR 10 Days #20 tab 12/30/18 Unknown Rx Hyclate TAB] Ibuprofen [Motrin 600 MG tab] 600 mg PO Q8H PRN #30 tablet 01/03/19 Unknown Rx Sulfamethoxazole/Trimethoprim 1 each PO BID #10 tablet 01/03/19 Unknown Rx [Bactrim DS TAB] Fluconazole (Nf) [Diflucan TAB] 150 mg PO ONCE #1 tablet 03/25/19 Unknown Rx Fluconazole (Nf) [Diflucan TAB] 150 mg PO ONCE #1 tablet 12/19/19 Unknown Rx cephALEXin [Keflex] 500 mg PO Q8HR #21 cap 12/19/19 Unknown Rx metroNIDAZOLE [Flagyl] 500 mg PO Q12HR #14 tab 12/19/19 Unknown Rx Allergies Allergy/AdvReac Type Severity Reaction Status Date / Time No Known Allergies Allergy Verified 01/03/19 13:18 ED Review of Systems ROS: Stated complaint: ABD PAIN Other details as noted in HPI Constitutional: denies: chills, fever Eyes: denies: eye pain, eye discharge, vision change ENT: denies: ear pain, throat pain Respiratory: denies: cough, shortness of breath, wheezing Cardiovascular: denies: chest pain, palpitations Endocrine: no symptoms reported Gastrointestinal: denies: abdominal pain, nausea, diarrhea Genitourinary: dysuria, discharge. denies: urgency Musculoskeletal: denies: back pain, joint swelling, arthralgia Skin: denies: rash, lesions Neurological: denies: headache, weakness, paresthesias Psychiatric: denies: anxiety, depression Hematological/Lymphatic: denies: easy bleeding, easy bruising ED Past Medical Hx - Past Medical History Previous Medical History?: No Hx Hypertension: No Hx Congestive Heart Failure: No Hx Diabetes: No Hx Deep Vein Thrombosis: No Hx Renal Disease: No Hx Sickle Cell Disease: No Hx Seizures: No Hx Asthma: No Hx COPD: No Hx HIV: No - Surgical History Past Surgical History?: No - Social History Smoking Status: Current Every Day Smoker Substance Use Type: None - Medications Home Medications: Home Medications Medication Instructions Recorded Confirmed Last Taken Type Vit-Fe Fumar-FA [ 1 each PO QDAY #30 tablet 07/29/13 05/27/18 05/26/18 Rx Vitamin] Docusate Sodium [Colace] 100 mg PO BID PRN #60 capsule 05/29/18 Unknown Rx Ferrous Sulfate [Feosol 325 MG tab] 325 mg PO BID #60 tablet 05/29/18 Unknown Rx Doxycycline Hyclate [Doxycycline 100 mg PO Q12HR 10 Days #20 tab 12/30/18 Unknown Rx Hyclate TAB] Ibuprofen [Motrin 600 MG tab] 600 mg PO Q8H PRN #30 tablet 01/03/19 Unknown Rx Sulfamethoxazole/Trimethoprim 1 each PO BID #10 tablet 01/03/19 Unknown Rx [Bactrim DS TAB] Fluconazole (Nf) [Diflucan TAB] 150 mg PO ONCE #1 tablet 03/25/19 Unknown Rx Fluconazole (Nf) [Diflucan TAB] 150 mg PO ONCE #1 tablet 12/19/19 Unknown Rx cephALEXin [Keflex] 500 mg PO Q8HR #21 cap 12/19/19 Unknown Rx metroNIDAZOLE [Flagyl] 500 mg PO Q12HR #14 tab 12/19/19 Unknown Rx ED Physical Exam - General Limitations: No Limitations General appearance: alert, in no apparent distress - Head Head exam: Present: atraumatic, normocephalic - Eye Eye exam: Present: normal appearance - Neck Neck exam: Present: normal inspection, full ROM. Absent: tenderness, meningismus, lymphadenopathy - Respiratory Respiratory exam: Present: normal lung sounds bilaterally. Absent: respiratory distress, wheezes, rales, rhonchi, stridor, chest wall tenderness, accessory muscle use, decreased breath sounds, prolonged expiratory - Cardiovascular Cardiovascular Exam: Present: regular rate, normal rhythm, normal heart sounds. Absent: bradycardia, tachycardia, irregular rhythm, systolic murmur, diastolic murmur, rubs, gallop - GI/Abdominal GI/Abdominal exam: Present: soft, normal bowel sounds. Absent: distended, tenderness, guarding, rebound, rigid, diminished bowel sounds - External exam: Present: normal external exam, other (Attendant Honor Bar Sulma RN present during exam). Absent: erythema, swelling, lesions, lacerations, ecchymosis, bleeding Speculum exam: Present: cervical discharge, other (Attendant Honor Bar Sulma RN present during exam). Absent: erythema, vaginal discharge, vaginal bleeding, foreign body, tissue, laceration Bi-manual exam: Present: cervical motion tendernes, other (Attendant Honor Bar Sulma RN present during exam). Absent: adnexal tenderness, adnexal mass, uterine enlargement, uterine tenderness - Extremities Exam Extremities exam: Present: normal inspection, full ROM - Back Exam Back exam: Present: normal inspection, full ROM. Absent: tenderness, CVA tenderness (R), CVA tenderness (L), muscle spasm, paraspinal tenderness, vertebral tenderness, rash noted - Neurological Exam Neurological exam: Present: alert, oriented X3, normal gait - Psychiatric Psychiatric exam: Present: normal affect, normal mood - Skin Skin exam: Present: warm, dry, intact, normal color. Absent: rash ED Course Vital Signs 12/19/19 08:36 Temperature 98.3 F Pulse Rate 89 Respiratory 17 Rate Blood Pressure 106/56 O2 Sat by Pulse 100 Oximetry - Reevaluation(s) Reevaluation #1: 12/19/19 10:05 Patient is speaking in full sentences with no signs of distress noted. ED Medical Decision Making - Lab Data Result diagrams: 12/19/19 08:52 12/19/19 08:48 Lab Results 12/19/19 12/19/19 12/19/19 Range/Units 08:48 08:52 08:52 WBC 4.2 L (4.5-11.0) K/mm3 RBC 4.67 (3.65-5.03) M/mm3 Hgb 14.2 (10.1-14.3) gm/dl Hct 42.0 (30.3-42.9) % MCV 90 (79-97) fl MCH 30 (28-32) pg MCHC 34 (30-34) % RDW 14.0 (13.2-15.2) % Plt Count 264 (140-440) K/mm3 Lymph % (Auto) 44.7 H (13.4-35.0) % [place] % (Auto) 5.7 (0.0-7.3) % Eos % (Auto) 2.6 (0.0-4.3) % Baso % (Auto) 0.8 (0.0-1.8) % Lymph # 1.9 (1.2-5.4) K/mm3 [place] # 0.2 (0.0-0.8) K/mm3 Eos # 0.1 (0.0-0.4) K/mm3 Baso # 0.0 (0.0-0.1) K/mm3 Seg Neutrophils % 46.2 (40.0-70.0) % Seg Neutrophils # 1.9 (1.8-7.7) K/mm3 Sodium 137 (137-145) mmol/L Potassium 4.2 (3.6-5.0) mmol/L Chloride 100.8 (98-107) mmol/L Carbon Dioxide 25 (22-30) mmol/L Anion Gap 15 mmol/L BUN 13 (7-17) mg/dL Creatinine 0.8 (0.6-1.2) mg/dL Estimated GFR > 60 ml/min BUN/Creatinine Ratio 16 % Glucose 120 H (65-100) mg/dL Calcium 9.4 (8.4-10.2) mg/dL Total Bilirubin 0.20 (0.1-1.2) mg/dL AST 22 (5-40) units/L ALT 24 (7-56) units/L Alkaline Phosphatase 55 (35-129) units/L Total Protein 7.7 (6.3-8.2) g/dL Albumin 4.5 (3.9-5) g/dL Albumin/Globulin Ratio 1.4 % Lipase 31 (13-60) units/L Urine Color (Yellow) Urine Turbidity (Clear) Urine pH (5.0-7.0) Ur Specific [place] (1.003-1.030) Urine Protein (Negative) mg/dL Urine Glucose (UA) (Negative) mg/dL Urine Ketones (Negative) mg/dL Urine Blood (Negative) Urine Nitrite (Negative) Urine Bilirubin (Negative) Urine Urobilinogen (<2.0) mg/dL Ur Leukocyte Esterase (Negative) Urine WBC (Auto) (0.0-6.0) /HPF Urine RBC (Auto) (0.0-6.0) /HPF U Epithel Cells (Auto) (0-13.0) /HPF Urine Bacteria (Auto) (Negative) /HPF Urine Mucus /HPF Urine HCG, Qual (Negative) 12/19/19 Range/Units Unknown WBC (4.5-11.0) K/mm3 RBC (3.65-5.03) M/mm3 Hgb (10.1-14.3) gm/dl Hct (30.3-42.9) % MCV (79-97) fl MCH (28-32) pg MCHC (30-34) % RDW (13.2-15.2) % Plt Count (140-440) K/mm3 Lymph % (Auto) (13.4-35.0) % [place] % (Auto) (0.0-7.3) % Eos % (Auto) (0.0-4.3) % Baso % (Auto) (0.0-1.8) % Lymph # (1.2-5.4) K/mm3 [place] # (0.0-0.8) K/mm3 Eos # (0.0-0.4) K/mm3 Baso # (0.0-0.1) K/mm3 Seg Neutrophils % (40.0-70.0) % Seg Neutrophils # (1.8-7.7) K/mm3 Sodium (137-145) mmol/L Potassium (3.6-5.0) mmol/L Chloride (98-107) mmol/L Carbon Dioxide (22-30) mmol/L Anion Gap mmol/L BUN (7-17) mg/dL Creatinine (0.6-1.2) mg/dL Estimated GFR ml/min BUN/Creatinine Ratio % Glucose (65-100) mg/dL Calcium (8.4-10.2) mg/dL Total Bilirubin (0.1-1.2) mg/dL AST (5-40) units/L ALT (7-56) units/L Alkaline Phosphatase (35-129) units/L Total Protein (6.3-8.2) g/dL Albumin (3.9-5) g/dL Albumin/Globulin Ratio % Lipase (13-60) units/L Urine Color Yellow (Yellow) Urine Turbidity Cloudy (Clear) Urine pH 7.0 (5.0-7.0) Ur Specific [place] 1.015 (1.003-1.030) Urine Protein <15 mg/dl (Negative) mg/dL Urine Glucose (UA) Neg (Negative) mg/dL Urine Ketones Neg (Negative) mg/dL Urine Blood Neg (Negative) Urine Nitrite Neg (Negative) Urine Bilirubin Neg (Negative) Urine Urobilinogen < 2.0 (<2.0) mg/dL Ur Leukocyte Esterase Lg (Negative) Urine WBC (Auto) 7.0 H (0.0-6.0) /HPF Urine RBC (Auto) 4.0 (0.0-6.0) /HPF U Epithel Cells (Auto) 24.0 H (0-13.0) /HPF Urine Bacteria (Auto) 1+ (Negative) /HPF Urine Mucus Few /HPF Urine HCG, Qual Negative (Negative) - Medical Decision Making This is a 23-year-old female that presents with BV, yeast, PID and UTI. Patient is stable and was examined by me. Patient received Rocephin and azithromycin in the ER. Patient will also be treated with Keflex. Patient was instructed to follow-up with a primary care doctor in 3-5 days or if symptoms worsen and continue return to emergency room as soon as possible. At time of discharge, the patient does not seem toxic or ill in appearance. No acute signs of distress noted. Patient agrees to discharge treatment plan of care. No further questions noted by the patient. Critical care attestation.: If time is entered above; I have spent that time in minutes in the direct care of this critically ill patient, excluding procedure time. ED Disposition Clinical Impression: PID (acute pelvic inflammatory disease), Bacterial vaginosis, Vaginal yeast infection UTI (urinary tract infection) Qualifiers: Urinary tract infection type: acute cystitis Hematuria presence: without hematuria Qualified Code(s): N30.00 - Acute cystitis without hematuria Disposition: TO HOME OR SELFCARE Is pt being admited?: No Does the pt Need Aspirin: No Condition: Stable Instructions: Metronidazole (By mouth), Pelvic Inflammatory Disease (ED), Bacterial Vaginosis (ED), Urinary Tract Infection in Women (ED) Additional Instructions: Follow-up with a primary care doctor in 3-5 days or if symptoms worsen and continue return to emergency room as soon as possible. Prescriptions: Fluconazole (Nf) [Diflucan TAB] 150 mg PO ONCE #1 tablet metroNIDAZOLE [Flagyl] 500 mg PO Q12HR #14 tab cephALEXin [Keflex] 500 mg PO Q8HR #21 cap Referrals: PRIMARY CAREMD [Primary Care Provider] - 3-5 Days DEJAN BELL MD [Staff Physician] - 3-5 Days Forms: Work/School Release Form(ED)
[2019-12-19] MEDS ORDERED: LIDOCAINE-MPF (1%) 10 MG/1 ML VIAL 5 ML INFILTRATI ONE (10:06)
[2019-12-19] MEDS ORDERED: AZITHROMYCIN 250 MG TAB PO ONE (10:06)
[2019-12-19 10:15] LABS: Alanine Aminotransferase 24 units/L (7-56); Albumin 4.5 g/dL (3.9-5); BUN/Creatinine Ratio 16; Blood Urea Nitrogen 13 mg/dL (7-17); Calcium 9.4 mg/dL (8.4-10.2); Hemolysis Index 7
== END 2019-12-19 12:02 | disposition home or self-care (01) ==
LOC: ED 08:33
DX: O48.0 Post-term pregnancy (principal); O23.43 Unspecified infection of urinary tract in pregnancy, third trimester; O99.333 Smoking (tobacco) complicating pregnancy, third trimester; Z3A.49 Greater than 42 weeks gestation of pregnancy; Z79.899 Other long term (current) drug therapy
CPT/HCPCS: 36415; 80053; 81001; 81025; 83690; 85025; 87210; 87591; 96372; 99284; J0696

== ENCOUNTER 2021-02-16 09:15 | Emergency (ER) | payer SELFPAY ==
[2021-02-16 09:24] VITALS: BP 127/79
--- NOTE | 2021-02-16 09:45 | Emergency Department Report ---
ED ENT HPI - General Chief complaint: Dental/Oral Stated complaint: TOOTHACHE/HEADACHE Time Seen by Provider: 02/16/21 09:19 Source: patient Mode of arrival: Ambulatory Limitations: No Limitations - History of Present Illness Initial comments: This is a 25-year-old female nontoxic, well nourished in appearance, no acute signs of distress presents to the ED with c/o of left upper toothache several days. Patient denies following up with a dentist. Patient stated that pain radiates from his job to his left side of head. Patient otherwise denies any head trauma. Patient describes toothache as aching level of 8 out of 10. Patient denies any facial swelling. Patient denies any numbness, tingling, fever, chills, headache, stiff neck, abdominal pain, chest pain, shortness of breath. Patient denies any drug allergies or significant past medical history. MD complaint: tooth pain -: days(s) Location: tooth # 1 - pain here Severity: mild Severity scale (0 -10): 8 Quality: aching Consistency: constant Improves with: none Worsens with: none Context- Dental: history of dental caries, poor dental care Associated Symptoms: gum swelling, toothache. denies: fever, cough, pain with swallowing, sore throat, tinnitus, hearing loss, discharge from ear, rhinorrhea - Related Data Previous Rx's Medication Instructions Recorded Last Taken Type Vit-Fe Fumar-FA [ 1 each PO QDAY #30 tablet 07/29/13 05/26/18 Rx Vitamin] Docusate Sodium [Colace] 100 mg PO BID PRN #60 capsule 05/29/18 Unknown Rx Ferrous Sulfate [Feosol 325 MG tab] 325 mg PO BID #60 tablet 05/29/18 Unknown Rx Doxycycline Hyclate [Doxycycline 100 mg PO Q12HR 10 Days #20 tab 12/30/18 Unknown Rx Hyclate TAB] Ibuprofen [Motrin 600 MG tab] 600 mg PO Q8H PRN #30 tablet 01/03/19 Unknown Rx Sulfamethoxazole/Trimethoprim 1 each PO BID #10 tablet 01/03/19 Unknown Rx [Bactrim DS TAB] Fluconazole (Nf) [Diflucan TAB] 150 mg PO ONCE #1 tablet 03/25/19 Unknown Rx Fluconazole (Nf) [Diflucan TAB] 150 mg PO ONCE #1 tablet 12/19/19 Unknown Rx cephALEXin [Keflex] 500 mg PO Q8HR #21 cap 12/19/19 Unknown Rx metroNIDAZOLE [Flagyl] 500 mg PO Q12HR #14 tab 12/19/19 Unknown Rx Amoxicillin [Amoxicillin TAB] 875 mg PO BID #20 tablet 02/16/21 Unknown Rx Chlorhexidine Mouthwash [Peridex] 15 ml MM BID #1 bottle 02/16/21 Unknown Rx Naproxen 500 mg PO Q12H PRN #12 tablet 02/16/21 Unknown Rx Allergies Allergy/AdvReac Type Severity Reaction Status Date / Time No Known Allergies Allergy Verified 01/03/19 13:18 ED Dental HPI - General Chief complaint: Dental/Oral Stated complaint: TOOTHACHE/HEADACHE Time Seen by Provider: 02/16/21 09:19 Source: patient Mode of arrival: Ambulatory Limitations: No Limitations - Related Data Previous Rx's Medication Instructions Recorded Last Taken Type Vit-Fe Fumar-FA [ 1 each PO QDAY #30 tablet 07/29/13 05/26/18 Rx Vitamin] Docusate Sodium [Colace] 100 mg PO BID PRN #60 capsule 05/29/18 Unknown Rx Ferrous Sulfate [Feosol 325 MG tab] 325 mg PO BID #60 tablet 05/29/18 Unknown Rx Doxycycline Hyclate [Doxycycline 100 mg PO Q12HR 10 Days #20 tab 12/30/18 Unknow n Rx Hyclate TAB] Ibuprofen [Motrin 600 MG tab] 600 mg PO Q8H PRN #30 tablet 01/03/19 Unknown Rx Sulfamethoxazole/Trimethoprim 1 each PO BID #10 tablet 01/03/19 Unknown Rx [Bactrim DS TAB] Fluconazole (Nf) [Diflucan TAB] 150 mg PO ONCE #1 tablet 03/25/19 Unknown Rx Fluconazole (Nf) [Diflucan TAB] 150 mg PO ONCE #1 tablet 12/19/19 Unknown Rx cephALEXin [Keflex] 500 mg PO Q8HR #21 cap 12/19/19 Unknown Rx metroNIDAZOLE [Flagyl] 500 mg PO Q12HR #14 tab 12/19/19 Unknown Rx Amoxicillin [Amoxicillin TAB] 875 mg PO BID #20 tablet 02/16/21 Unknown Rx Chlorhexidine Mouthwash [Peridex] 15 ml MM BID #1 bottle 02/16/21 Unknown Rx Naproxen 500 mg PO Q12H PRN #12 tablet 02/16/21 Unknown Rx Allergies Allergy/AdvReac Type Severity Reaction Status Date / Time No Known Allergies Allergy Verified 01/03/19 13:18 ED Review of Systems ROS: Stated complaint: TOOTHACHE/HEADACHE Other details as noted in HPI Comment: All other systems reviewed and negative Constitutional: denies: chills, fever Eyes: denies: eye pain, eye discharge, vision change ENT: dental pain. denies: ear pain, throat pain, hearing loss, epistaxis, congestion Respiratory: denies: cough, shortness of breath, wheezing Cardiovascular: denies: chest pain, palpitations Endocrine: no symptoms reported Gastrointestinal: denies: abdominal pain, nausea, diarrhea Genitourinary: denies: urgency, dysuria, discharge Musculoskeletal: denies: back pain, joint swelling, arthralgia Skin: denies: rash, lesions Neurological: denies: headache, weakness, paresthesias Psychiatric: denies: anxiety, depression Hematological/Lymphatic: denies: easy bleeding, easy bruising ED Past Medical Hx - Past Medical History Previous Medical History?: No Hx Hypertension: No Hx Congestive Heart Failure: No Hx Diabetes: No Hx Deep Vein Thrombosis: No Hx Renal Disease: No Hx Sickle Cell Disease: No Hx Seizures: No Hx Asthma: No Hx COPD: No Hx HIV: No - Surgical History Past Surgical History?: No - Social History Smoking Status: Current Every Day Smoker Substance Use Type: None - Medications Home Medications: Home Medications Medication Instructions Recorded Confirmed Last Taken Type Vit-Fe Fumar-FA [ 1 each PO QDAY #30 tablet 07/29/13 05/27/18 05/26/18 Rx Vitamin] Docusate Sodium [Colace] 100 mg PO BID PRN #60 capsule 05/29/18 Unknown Rx Ferrous Sulfate [Feosol 325 MG tab] 325 mg PO BID #60 tablet 05/29/18 Unknown Rx Doxycycline Hyclate [Doxycycline 100 mg PO Q12HR 10 Days #20 tab 12/30/18 U nknown Rx Hyclate TAB] Ibuprofen [Motrin 600 MG tab] 600 mg PO Q8H PRN #30 tablet 01/03/19 Unknown Rx Sulfamethoxazole/Trimethoprim 1 each PO BID #10 tablet 01/03/19 Unknown Rx [Bactrim DS TAB] Fluconazole (Nf) [Diflucan TAB] 150 mg PO ONCE #1 tablet 03/25/19 Unknown Rx Fluconazole (Nf) [Diflucan TAB] 150 mg PO ONCE #1 tablet 12/19/19 Unknown Rx cephALEXin [Keflex] 500 mg PO Q8HR #21 cap 12/19/19 Unknown Rx metroNIDAZOLE [Flagyl] 500 mg PO Q12HR #14 tab 12/19/19 Unknown Rx Amoxicillin [Amoxicillin TAB] 875 mg PO BID #20 tablet 02/16/21 Unknown Rx Chlorhexidine Mouthwash [Peridex] 15 ml MM BID #1 bottle 02/16/21 Unknown Rx Naproxen 500 mg PO Q12H PRN #12 tablet 02/16/21 Unknown Rx ED Physical Exam - General Limitations: No Limitations General appearance: alert, in no apparent distress - Head Head exam: Present: atraumatic, normocephalic - Eye Eye exam: Present: normal appearance - Expanded ENT Exam Expanded Ear exam: Present: normal external inspection Mouth exam: Present: normal external inspection, tongue normal. Absent: drooling, trismus, muffled voice Teeth exam: Present: dental caries, fractured tooth #, dental tenderness #, gingival enlargement, other (no dental swelling or abscess) Throat exam: Positive: normal inspection, other (uvula midline). Negative: tonsillar erythema, tonsillomegaly, tonsillar exudate, R peritonsillar mass, L peritonsillar mass - Neck Neck exam: Present: normal inspection, full ROM. Absent: lymphadenopathy - Respiratory Respiratory exam: Absent: respiratory distress - Cardiovascular Cardiovascular Exam: Present: regular rate - Extremities Exam Extremities exam: Present: full ROM - Back Exam Back exam: Present: full ROM - Neurological Exam Neurological exam: Present: alert, oriented X3, normal gait - Psychiatric Psychiatric exam: Present: normal affect, normal mood - Skin Skin exam: Present: warm, dry, intact, normal color. Absent: rash ED Course Vital Signs 02/16/21 09:22 Temperature 98.4 F Pulse Rate 79 Respiratory 16 Rate Blood Pressure 127/79 O2 Sat by Pulse 98 Oximetry - Reevaluation(s) Reevaluation #1: 02/16/21 09:43 Patient is speaking in full sentences with no signs of distress noted. ED Medical Decision Making - Medical Decision Making This is a 25-year-old female that presents with gingivitis and dental caries. Patient is stable and was examined by me. Exam does not show any dental absc ess. I will discharge patient with amoxicillin, Peridex and naproxen. Patient given referral to see a dentist in 3 to 5 days. At time of discharge, the patient does not seem toxic or ill in appearance. No acute signs of distress noted. Patient agrees to discharge treatment plan of care. No further questions noted by the patient. Critical care attestation.: If time is entered above; I have spent that time in minutes in the direct care of this critically ill patient, excluding procedure time. ED Disposition Clinical Impression: Dental caries, Gingivitis Disposition: HOME / SELF CARE / HOMELESS Is pt being admited?: No Does the pt Need Aspirin: No Condition: Stable Additional Instructions: Follow-up with a dentist doctor in 3-5 days or if symptoms worsen and continue return to emergency room as soon as possible. Prescriptions: Amoxicillin [Amoxicillin TAB] 875 mg PO BID #20 tablet Naproxen 500 mg PO Q12H PRN #12 tablet PRN Reason: Pain , Severe (7-10) Chlorhexidine Mouthwash [Peridex] 15 ml MM BID #1 bottle Referrals: PRIMARY CAREMD [Referring] - 3-5 Days DEJAN BELL MD [Staff Physician] - 3-5 Days [facility] [Outside] - 3-5 Days [facility] [Outside] - 3-5 Days Forms: Work/School Release Form(ED) Time of Disposition: 09:45
== END 2021-02-16 09:54 | disposition home or self-care (01) ==
LOC: ED 09:15
DX: K02.9 Dental caries, unspecified (principal); K05.10 Chronic gingivitis, plaque induced; F17.200 Nicotine dependence, unspecified, uncomplicated; Z79.899 Other long term (current) drug therapy
CPT/HCPCS: 99281